=== PATIENT | male | born 1985 | race Caucasian/White ===

== ENCOUNTER 2019-06-15 10:04 | Emergency (ER) | payer OTHER ==
[2019-06-15] MEDS ORDERED: KETOROLAC 60 MG/2 ML VIAL IM STA (10:24)
--- NOTE | 2019-06-15 10:28 | ED ---
Extremity Problem HPI - General Chief complaint: Extremity Problem,Nontraumatic Stated complaint: Shoulder ache/not feeling good Time Seen by Provider: 06/15/19 10:13 Source: patient Mode of arrival: ambulatory Limitations: no limitations - History of Present Illness Initial comments: Patient is a 33-year-old male presenting to the emergency Department with complaints of right shoulder pain 2 days. Patient states approximately 16 years ago he had a right clavicle replacement with titanium secondary to a snowboarding accident. Patient states he has not had pain or issues with this since that surgery. Patient states approximately 2 days ago he started having intermittent sharp pains in his right clavicle and right shoulder. Patient denies any new injury or trauma to the right shoulder. Patient states the pain has been getting worse and he is now having some tingling and numbness into his right upper arm. Patient states he tried to work yesterday but had to stop on multiple occasions secondary to the pain. Denies fever, chills, nausea, vomiting. Patient has no other complaints at this time. Upon arrival to ER, vital signs are stable. - Related Data Previous Rx's Medication Instructions Recorded Ibuprofen [Motrin] 800 mg PO Q6HR PRN #20 tab 02/20/15 Cyclobenzaprine [Flexeril] 5 mg PO BID #10 tablet 06/15/19 Ketorolac [Toradol] 10 mg PO Q8HR #15 tab 06/15/19 Allergies Allergy/AdvReac Type Severity Reaction Status Date / Time No Known Allergies Allergy Verified 06/15/19 10:31 Review of Systems ROS Statement: Those systems with pertinent positive or pertinent negative responses have been documented in the HPI. ROS Other: All systems not noted in ROS Statement are negative. Past Medical History Additional Past Medical History / Comment(s): headaches History of Any Multi-Drug Resistant Organisms: None Reported Past Surgical History: Orthopedic Surgery Additional Past Surgical History / Comment(s): right shoulder Past Psychological History: No Psychological Hx Reported, Depression Smoking Status: Former smoker Past Alcohol Use History: Occasional Past Drug Use History: Marijuana General Exam - General Exam Comments Initial Comments: GENERAL: Well-appearing, well-nourished and in no acute distress. HEAD: Atraumatic, normocephalic. EYES: Pupils equal round and reactive to light, extraocular movements intact, sclera anicteric, conjunctiva are normal. ENT: Moist mucous membranes. NECK: Normal range of motion, supple without lymphadenopathy or JVD. LUNGS: Breath sounds clear to auscultation bilaterally and equal. No wheezes rales or rhonchi. HEART: Regular rate and rhythm without murmurs, rubs or gallops. EXTREMITIES: Pain with palpation of the right anterior shoulder and clavicle. Patient has normal range of motion of the right shoulder and elbow. There is no erythema or swelling at this time. Patient is neurovascular intact. Strength is 5 out of 5. NEUROLOGICAL: Cranial nerves II through XII grossly intact. Normal speech, normal gait. PSYCH: Normal mood, normal affect. SKIN: Warm, Dry, normal turgor, no rashes or lesions noted. Limitations: no limitations Course Vital Signs 06/15/19 06/15/19 10:07 11:31 Temperature 97.4 F L 98.3 F Pulse Rate 86 81 Respiratory 18 16 Rate Blood Pressure 122/82 135/74 O2 Sat by Pulse 96 99 Oximetry Medical Decision Making - Medical Decision Making Patient is a 33-year-old male presenting with right shoulder and right clavicle pain for the last 2 days. No trauma or injuries. Patient does have a previous plate and screws and a right clavicle approximately 16 years ago after a snowboarding accident. Patient has full range of motion today and some generalized tenderness around the right shoulder. X-rays reveal no acute injuries. Patient will be placed on anti-inflammatories and a few days of muscle relaxer and will follow up with orthopedics if symptoms persist. Patient is in agreement with this plan of care. Case discussed with Dr. Meyers. Disposition Clinical Impression: Right shoulder pain Disposition: HOME SELF-CARE Condition: Stable Instructions (If sedation given, give patient instructions): Shoulder Pain (ED) Additional Instructions: Please return to the Emergency Department if symptoms worsen or any other concerns. Continue with anti-inflammatories and a trial of muscle relaxer to take at night. Follow-up with orthopedics if symptoms persist. Prescriptions: Cyclobenzaprine [Flexeril] 5 mg PO BID #10 tablet Ketorolac [Toradol] 10 mg PO Q8HR #15 tab Is patient prescribed a controlled substance at d/c from ED?: No Referrals: Yosvany Morton MD [Primary Care Provider] - 1-2 days Jamel Lau MD [STAFF PHYSICIAN] - 1-2 days
--- NOTE | 2019-06-15 11:06 | XR ---
EXAMINATION TYPE: XR shoulder 3 views complete RT, XR clavicle 2 views RT DATE OF EXAM: 06/15/2019 COMPARISON: NONE HISTORY: 33-year-old male pain and prior surgery FINDINGS: AC joint appears congruent and intact. Mild spurring superiorly. Plate and screw fixation of the mid to distal third clavicular shaft appears chronic and healed. Subacromial space is preserved. No tendi nous or bursal calcifications. No acute fracture, subluxation, or dislocation seen. IMPRESSION (right shoulder and clavicle): 1. Suggestion of mild degenerative spurring superiorly along the AC joint. 2. Plate and screw fixation along the mid to distal third clavicular shaft. 3. No acute osseous remodeling seen.
[2019-06-15 11:32] VITALS: BP 135/74; PULSE 81; RESP 16; TEMP 98.3
== END 2019-06-15 11:31 | disposition home or self-care (01) ==
LOC: EC 10:04
DX: M25.511 Pain in right shoulder (principal); Z87.891 Personal history of nicotine dependence
CPT/HCPCS: 73000; 73030; 99283; 96372; J1885